=== PATIENT | female | born 1975 | race Caucasian/White ===

== ENCOUNTER 2022-06-29 20:54 | Emergency (ER) | payer MEDICAID, OTHER ==
[~2022-06-29] VITALS: Ht 162.6 cm; Wt 91.5 kg
[~2022-06-29 20:54] MED LIST: CLIN-26 PO; CYCL-1 PO; HYDR-4383 PO; ONDA4TAB12 PO; TRIA15CR61 TP
[2022-06-29 20:58] VITALS: BP 195/101
== END 2022-06-29 22:59 | disposition left against medical advice (07) ==
LOC: ER 20:54
DX: R42 Dizziness and giddiness (principal); Z53.21 Procedure and treatment not carried out due to patient leaving prior to being seen by health care provider
CPT/HCPCS: 93005